=== PATIENT | female | born 1980 | race Two or more races ===

== ENCOUNTER 2017-10-24 10:41 | Outpatient (CLI) | payer OTHER | END 2017-10-24 10:51 | disposition home or self-care (01) | LOC: SONOGRAMA 10:41 | DX: N60.11 Diffuse cystic mastopathy of right breast (principal); N60.12 Diffuse cystic mastopathy of left breast; N63.11 Unspecified lump in the right breast, upper outer quadrant ==

== ENCOUNTER 2017-12-05 05:59 | Inpatient (IN) | payer OTHER ==
[~2017-12-05] VITALS: Ht 160 cm; Wt 64.9 kg
== END 2017-12-06 13:07 | disposition home or self-care (01) | DRG 581 ==
LOC: CIR.AMB 05:59 → SURG 20:22
PROVIDERS: Plastic Surgery; Surgery
PROC: 0H0V0ZZ Alteration of Bilateral Breast, Open Approach (ICD-10-PCS; 2017-12-05)
PROC: BH40ZZZ Ultrasonography of Right Breast (ICD-10-PCS; 2017-12-05)
PROC: 07B50ZX Excision of Right Axillary Lymphatic, Open Approach, Diagnostic (ICD-10-PCS; principal; 2017-12-05 14:00)
PROC: 0HBT0ZZ Excision of Right Breast, Open Approach (ICD-10-PCS; 2017-12-05 14:00)
DX: C50.411 Malignant neoplasm of upper-outer quadrant of right female breast (principal); N62 Hypertrophy of breast

== ENCOUNTER 2017-12-27 06:55 | Day surgery (SDC) | payer OTHER ==
[2017-12-27] MEDS ORDERED: PERCOCET 5-3251 EACH PO (14:21)
== END 2017-12-27 18:00 | disposition home or self-care (01) ==
LOC: CIR.AMB 06:55
DX: C50.111 Malignant neoplasm of central portion of right female breast (principal)
CPT/HCPCS: 36561; C1751

== ENCOUNTER 2019-05-22 06:30 | Day surgery (SDC) | payer OTHER ==
[~2019-05-22 06:30] MED LIST: ARIMIDEX PO; PERCOCET 5-3251 EACH PO; VITAMIN D32000 UNI2; ZOLADEX10.8 MG IM; [UNRECOGNIZED DRUG - OTHER] IM
[2019-05-22] MEDS ORDERED: PERCOCET 5-3251 EACH PO (10:28)
== END 2019-05-22 11:10 | disposition home or self-care (01) ==
LOC: CIR.AMB 06:30
DX: C50.111 Malignant neoplasm of central portion of right female breast (principal)